=== PATIENT | female | born 1965 | race Caucasian/White ===

== ENCOUNTER 2024-10-31 20:54 | Emergency (ER) | payer MEDICAID, SELFPAY ==
[2024-10-31 21:44] VITALS: BP 108/67; PULSE 96; RESP 20; TEMP 36.6; O2SAT 96
--- NOTE | 2024-10-31 21:53 | PC.NURSE ---
CALLED PT NO ANSWER
--- NOTE | 2024-10-31 21:56 | PD.EDRME ---
Rapid Medical Screening Exam RME Arrival date/time: 10/31/24 20:54 Chief Complaint: Abdominal Pain Time Seen by Provider: 10/31/24 21:22 Vital signs: Vital Signs Temperature 97.8 F 10/31/24 21:44 Pulse Rate 96 10/31/24 21:44 Respiratory Rate 20 10/31/24 21:44 Blood Pressure 108/67 10/31/24 21:44 Pulse Oximetry (%) 96 10/31/24 21:44 Oxygen Delivery Method Room Air 10/31/24 21:44 RME Narrative: reports glucose >500 at home, c/o body aches
[2024-10-31 22:41] LABS: Collection Type, Urine Clean Catch
[2024-10-31 22:57] LABS: Base Excess, Venous -1 (-3-3); Basophils # (Auto) 0.1 Thou/mm3 (0.0-0.2); Basophils % (Auto) 0 % (0-2.5); Eosinophils # (Auto) 0.1 Thou/mm3 (0.0-0.5); Eosinophils % (Auto) 1 % (0-10); Hematocrit 42.7 % (36.0-46.0); Hemoglobin 14.4 g/dL (12.0-16.0); Immature Granulocytes Auto 0.05 Thou/mm3 (0.00-0.00); Lymphocytes # (Auto) 1.6 Thou/mm3 (1.0-4.8); Lymphocytes % (Auto) 14 % (10-50); Mean Corpuscular HGB Conc 33.7 g/dl (31.0-37.0); Mean Corpuscular Hemoglobin 28.3 pg (25.0-35.0); Mean Corpuscular Volume 84 fL (80-100); Monocytes # (Auto) 0.8 Thou/mm3 (0.0-0.8); Monocytes % (Auto) 6 % (0-12); Neutrophils # (Auto) 9.5 Thou/mm3 (1.8-7.7); Neutrophils % (Auto) 78 % (37-80); Nucleated Red Blood Cell # 0.00 Thou/mm3 (0.00-0.00); Nucleated Red Blood Cell % 0 /100 WBC (0); O2 Saturation, Venous 55 % (96-97); PCO2, Venous 43 mmHg (36-56); PO2, Venous 29 mmHg (15-58); Platelet Count 377 Thou/mm3 (140-440); RDW Standard Deviation 40.7 fL (36.4-46.3); Red Blood Count 5.09 Miln/mm3 (4.00-5.20); White Blood Count 12.1 Thou/mm3 (3.6-11.0); pH, Venous 7.36 (7.33-7.66)
[2024-10-31 23:00] LABS: Beta Hydroxybutyrate 0.2 mmol/L (<0.6)
[2024-10-31 23:09] LABS: Bilirubin,Urine Negative (Negative); Blood,Urine Negative (Negative); Clarity,Urine Clear (Clear/Hazy); Color,Urine Lt-Yellow (Lt Yel-Yel); Glucose, Urine 4+ (Negative); Hyaline Casts,Urine 1 /hpf (0-1); Ketones,Urine Negative (Negative); Leukocyte Esterase,Urine Positive (Negative); Nitrite,Urine Negative (Negative); PH,Urine 6.0 (5.0-7.0); Protein,Urine 1+ (Neg - Trace); RBC,Urine 5 /hpf (0-3); Specific Gravity,Urine 1.023 (1.001-1.035); Squamous Epithelial Cell,Urine 5 /hpf (0-5); Urobilinogen,Urine Negative mg/dL (0.0-1.0); WBC,Urine 4 /hpf (0-5)
[2024-10-31] MEDS: IBUPROFEN TAB 400 MG TABLET 800 MG PO (23:15)
[2024-10-31 23:16] LABS: Glucose Estimated Average 329 mg/dL (80-131); Hemoglobin A1C 13.1 % Hgb (4.8-6.0)
[2024-10-31 23:19] LABS: Alanine Aminotransferase 27 U/L (10-49); Albumin, Serum 4.1 gm/dL (3.4-4.8); Albumin/Globulin Ratio 1.1 (1.2-2.2); Alkaline Phosphatase 145 U/L (46-116); Anion Gap 10 (7-16); Aspartate Amino Transferase 18 U/L (0-34); BUN/Creatinine Ratio 17 Ratio (12-20); Bilirubin,Total 0.4 mg/dL (0.3-1.2); Blood Urea Nitrogen 15 mg/dL (9-23); Calcium 9.7 mg/dL (8.3-10.6); Calcium (Corrected) 9.7 mg/dL (8.5-10.1); Carbon Dioxide 22.7 mMol/L (20.0-31.0); Chloride 103 mMol/L (98-107); Creatinine (Component) 0.9 mg/dL (0.6-1.3); Globulin 3.7 gm/dL (2.3-3.5); Glucose 296 mg/dL (74-106); Osmolality,Calculated 283 (275-295); Potassium 3.7 mMol/L (3.4-5.1); Sodium 136 mMol/L (136-145); Total Protein 7.8 gm/dL (5.7-8.2); eGFR > 60 See Note
[2024-11-01 00:01] VITALS: BP 74/41; BP 77/47; PULSE 90; RESP 18; TEMP 36.2; O2SAT 97
[2024-11-01 00:11] VITALS: BMI 24.5
--- NOTE | 2024-11-01 00:24 | PD.EDABDPN ---
ED Abdominal Pain RME/HPI General Chief Complaint: Abdominal Pain Stated complaint: ABD PAIN,BACK PAIN Time seen by provider: 10/31/24 21:22 Arrival date/time: 10/31/24 20:54 RME / HPI RME / HPI narrative: reports glucose >500 at home, c/o body aches DR. CÁREDNAS MAIN ED EVALUATION: 59 y/o female with Hx of Smoking, HTN, and Type II DM presents to ED c/o elevated blood sugar in the 500's and BL flank cramping x 1 day. Denies vomiting. Per niece, patient is not always compliant with her medication, but has made positive adjustments to her diet. Related Data Previous Rx's ?Medication ?Instructions ?Recorded insulin glargine 100 unit/mL (3 12 unit (0.12 mL) subcut BID #3 mL 01/03/19 mL) subcutaneous pen (Basaglar KwikPen U-100 Insulin) metformin 1,000 mg tablet 1,000 mg PO BID #0 tabs 01/03/19 (Glucophage) metformin 1,000 mg tablet 1,000 mg PO BID #180 tabs 05/06/20 Allergies Allergy/AdvReac Type Severity Reaction Status Date / Time No Known Allergies Allergy Verified 10/31/24 20:55 Review of Systems Review of Systems Systems Reviewed: All systems reviewed, normal except as documented Past Medical History Past Medical History NEUROLOGIC: Positive Neurological Disorders CARDIAC: Positive Hypertension MUSCULOSKELETAL: Positive Musculoskeletal Disorders and Arthritis ENDOCRINE: Positive Endocrine Disorders and Diabetes Mellitus Type 2 Social History SMOKING STATUS: Current every day smoker ED Exam Narrative Physical exam: Generally patient is alert elderly appearing female in no obvious distress, heart regular rate and rhythm, lungs clear to auscultation equal bilaterally, abdomen soft bowel sounds present nondistended nontender, skin is warm and dry musculoskeletal exam shows no costovertebral angle tenderness, extremities show no edema, patient is alert and oriented x 4 without focal motor deficit Course Quality Measures none Orders Category Date Time Status Beta Hydroxybutyrate Stat Lab 10/31/24 22:44 Completed CBC Stat Lab 10/31/24 22:44 Completed CMP [Comprehensive Metabolic Panel] Stat Lab 10/31/24 22:44 Completed Hemoglobin A1C [Glycohemoglobin w (eAG)] Stat Lab 10/31/24 22:44 Completed UA [Urinalysis] Stat Lab 10/31/24 22:27 Completed VBG [Venous Blood Gas] Stat Lab 10/31/24 22:44 Completed Ibuprofen Tab [Motrin Tab] Med 10/31/24 23:02 Discontinued 800 mg PO X1 ONE Vital Signs Vital signs: Vital Signs Temperature 97.8 F 10/31/24 21:44 Pulse Rate 96 10/31/24 21:44 Respiratory Rate 20 10/31/24 21:44 Blood Pressure 108/67 10/31/24 21:44 Pulse Oximetry (%) 96 10/31/24 21:44 Oxygen Delivery Method Room Air 10/31/24 21:44 Abdominal Pain MDM MDM Narrative MDM Narrative:: Scribe Attestation: I, Darya Mullins, am scribing for and in the presence of Dr. Cárdenas. Provider Notation: Although this document has been carefully reviewed, there may still be some phonetic and other typographical errors. These errors are purely grammatical due to imperfections in the software program and should not be construed in any way to compromise the substance of the patient's medical care during this visit.\ I interpreted all labs. Blood sugar is 296. Patient is not in diabetic ketoacidosis. Renal function is normal. There is no electrolyte abnormality. Urine is not infected. Patient most likely is experiencing muscular pain due to the fact that she is undergoing osmotic diuresis due to the high blood sugars at home. It was stressed to the patient the importance of taking her insulin as prescribed. She has been missing dosages. Her hemoglobin A1c is 13. Patient was counseled on the need to stay hydrated with noncarbohydrate beverages. Take her insulin as prescribed. Patient data External records reviewed:: [facility] previous records (Reviewed prior ED records from 05/06/20. Patient was seen for Hyperglycemia.) Clinical information provided by:: patient and family (Niece) Social determinants that could affect healthcare access:: none Patient has the following chronic illnesses:: Hypertension, Arthritis, Diabetes Mellitus Type 2 How is presenting disease/condition affected by chronic disease/condition?: exacerbated by Evaluation data The following diagnostics were reviewed and interpreted by me:: lab results Lab and/or radiology exams considered but not ordered:: None Interpretation Summary: See MDM above Medications / Prescriptions Medications or Prescriptions considered but not ordered:: None Medication administrations:: Medication Administration History Discontinued Medications Ibuprofen (Ibuprofen Tab 400 Mg Tablet) 800 mg PO X1 ONE Stop: 10/31/24 23:03 Last Admin: 10/31/24 23:15 Dose: 800 mg Documented By: ALLYSSA See above if any Consultations Consultation(s) initiated? (list below): No Diagnosis Differential diagnosis abdominal pain: abdominal pain, calculus of kidney, constipation, diverticulitis, gastroenteritis, pancreatitis, small bowel obstruction and other (DKA) Most likely diagnosis given after review of the tests above:: none Admission Indicated Admission indicated?: not indicated Explain why admission is indicated or not indicated:: Patient does not meet admission criteria Admission Request Was there a request for admission?: No Disposition Plan Disposition Plan: Discharge Discharge Attestation Discharge Attestation: The patient and all family members were given an opportunity to ask questions and understood the discharge instructions. Discharge instructions specifically effects, indications for sooner follow up or return to the emergency department, and the expected course of current diagnosis. Patient condition: Stable Discharge Plan Plan Patient Disposition: HOME (Self Care) Prescriptions/Referrals Prescriptions/Med Rec: No Action Ang Ngo U-100 Insulin 100 unit/mL (3 mL) insulin pen 12 unit SC BID Qty: 3 0RF Rx Instructions: Please provide with corresponding caps and needles. Thank you. metformin [Glucophage] 1,000 MG tablet 1,000 mg PO BID Qty: 0 0RF metformin 1,000 mg tablet 1,000 mg PO BID Qty: 180 0RF Referrals: David Aguilar MD [Primary Care Provider, Family Practice] - In 1 week Problem List Clinical Impression: Poorly controlled diabetes mellitus, Musculoskeletal pain Patient/Caregiver Discharge Instructions Additional Instructions: You must take your insulin as prescribed. Stay well-hydrated. Follow-up with your doctor as needed. Print Language: Vietnamese Stand Alone Forms: Clotilde Award Info., Patient Portal Info Letter
[2024-11-01 00:40] VITALS: BP 100/61; PULSE 90; RESP 16; TEMP 36.8; O2SAT 95
== END 2024-11-01 00:42 | disposition home or self-care (01) ==
PROVIDERS: Physician Assistant; Emergency Provider Emergency Medicine; PCP Family Medicine
DX: E11.65 Type 2 diabetes mellitus with hyperglycemia (principal); M79.18 Myalgia, other site; I10 Essential (primary) hypertension; M19.90 Unspecified osteoarthritis, unspecified site; F17.210 Nicotine dependence, cigarettes, uncomplicated
CPT/HCPCS: 36415; 80053; 81001; 82010; 82803; 83036; 85025; 99283; A9270

== ENCOUNTER 2024-12-09 19:28 | Emergency (ER) | payer MEDICAID, SELFPAY ==
[2024-12-09 20:24] VITALS: BP 173/80; PULSE 97; RESP 19; TEMP 37.2; O2SAT 98
[2024-12-09 20:25] VITALS: BMI 23.0
--- NOTE | 2024-12-09 20:36 | EKG_ITS ---
[facility] (Formerly [facility])[3] Test Date: 2024-12-09 Pat Name: YOLANDA DANIELS Department: Room: - Gender: Female Store [employer]: : 1965 Requested By: Radha Casper Order Number: [id number] Reading MD: Radha Casper Measurements Intervals [place] Rate: 95 P: 5 CT: 152 QRS: -40 QRSD: 95 T: 73 QT: 337 QTc: 425 Interpretive Statements SINUS RHYTHM LEFT AXIS DEVIATION [QRS AXIS < -30] LOW QRS VOLTAGE IN PRECORDIAL LEADS [QRS DEFLECTION < 1.0 mV IN CHEST LEADS] PATTERN CONSISTENT WITH PULMONARY DISEASE INCOMPLETE RIGHT BUNDLE BRANCH BLOCK [90+ ms QRS DURATION, TERMINAL R IN V1/V2, 40+ ms S IN I/aVL/V4/V5/V6] No previous ECG available for comparison /store/[email or web address]/[id number].pdf
--- NOTE | 2024-12-09 20:36 | XR_ITS ---
Examination: CT brain head without contrast. 2-D sagittal coronal reconstructions Date and time of exam: December 09, 2024, 2056 hours INDICATIONS: Head pain bilateral leg weakness this week CTDI: vol (mGy): 47.5 DLP: (mGycm): 955 Technique: Multiple CT axial sections of the brain have been obtained, 5 mm slice thickness. Contrast has not been administered. 2-D sagittal, coronal reconstructions have been obtained Low dose protocols were performed. One or more of the following dose reduction techniques were used; automated exposure control, adjustment of the mA and/or KV according to patient size, use of iterative reconstruction technique. Findings: No significant ventricular enlargement. Intra-axial or extra-axial hemorrhage density is not seen. No mass effect or midline shift Basal cisterns are not remarkable. Fourth ventricle is midline. Cranial vault intact. Impression: Negative for acute hemorrhage, mass effect or midline shift Advise clinical correlation and follow-up accordingly
--- NOTE | 2024-12-09 20:46 | PD.EDRME ---
Rapid Medical Screening Exam RME Arrival date/time: 12/09/24 19:28 This is a case of 59-year-old female with history of diabetes said that the patient is out of medication and was brought here due to general weakness and left lower leg weakness and numbness for 1 week worsening of the symptoms this patient decided to sought consult here in the emergency room Chief Complaint: General Adult/Misc Complain Time Seen by Provider: 12/09/24 20:29 Vital signs: Vital Signs Temperature 99.0 F 12/09/24 20:24 Pulse Rate 97 12/09/24 20:24 Respiratory Rate 19 12/09/24 20:24 Blood Pressure 173/80 H 12/09/24 20:24 Pulse Oximetry (%) 98 12/09/24 20:24 Oxygen Delivery Method Room Air 12/09/24 20:24 Exam: Patient is awake and decreased sensory on the left lower leg awake alert oriented x 4 not in distress Clinical Impression: Generalized weakness
[2024-12-09 21:18] LABS: Base Excess, Venous 4 (-3-3); O2 Saturation, Venous 62 % (96-97); PCO2, Venous 48 mmHg (36-56); PO2, Venous 32 mmHg (15-58); pH, Venous 7.40 (7.33-7.66)
[2024-12-09] MEDS: INSULIN HUM REGULAR 1 UNIT/0.01 ML (PER UNIT) 6 UNIT IV (21:20)
[2024-12-09] MEDS: SODIUM CHLORIDE 0.9% 1000 ML 1,000 ML 999 ML IV (21:21)
[2024-12-09 21:22] LABS: Basophils # (Auto) 0.0 Thou/mm3 (0.0-0.2); Basophils % (Auto) 0 % (0-2.5); Eosinophils # (Auto) 0.4 Thou/mm3 (0.0-0.5); Eosinophils % (Auto) 4 % (0-10); Hematocrit 40.6 % (36.0-46.0); Hemoglobin 13.4 g/dL (12.0-16.0); Immature Granulocytes Auto 0.04 Thou/mm3 (0.00-0.00); Lymphocytes # (Auto) 1.6 Thou/mm3 (1.0-4.8); Lymphocytes % (Auto) 15 % (10-50); Mean Corpuscular HGB Conc 33.0 g/dl (31.0-37.0); Mean Corpuscular Hemoglobin 27.6 pg (25.0-35.0); Mean Corpuscular Volume 84 fL (80-100); Monocytes # (Auto) 0.7 Thou/mm3 (0.0-0.8); Monocytes % (Auto) 6 % (0-12); Neutrophils # (Auto) 8.1 Thou/mm3 (1.8-7.7); Neutrophils % (Auto) 74 % (37-80); Nucleated Red Blood Cell # 0.00 Thou/mm3 (0.00-0.00); Nucleated Red Blood Cell % 0 /100 WBC (0); Platelet Count 395 Thou/mm3 (140-440); RDW Standard Deviation 43.5 fL (36.4-46.3); Red Blood Count 4.85 Miln/mm3 (4.00-5.20); White Blood Count 10.8 Thou/mm3 (3.6-11.0)
[2024-12-09 21:35] LABS: Beta Hydroxybutyrate 0.1 mmol/L (<0.6)
--- NOTE | 2024-12-09 21:42 | PD.EDWEAK ---
ED Weakness RME/HPI General Chief complaint: Altered Mental Status Stated complaint: UNABLE TO WALK X 1WEEK Time Seen by Provider: 12/09/24 20:29 Arrival date/time: 12/09/24 19:28 RME / HPI RME / HPI Narrative: 12/09/24 19:28 This is a case of 59-year-old female with history of diabetes said that the patient is out of medication and was brought here due to general weakness and left lower leg weakness and numbness for 1 week worsening of the symptoms this patient decided to sought consult here in the emergency room DR. CÁRDENAS MAIN ED EVALUATION: 59 y/o female with Hx of Type II DM, Smoking, HTN, and Hypercholesterolemia presents to ED c/o generalized weakness and difficulty with ambulation x 1 week. Patient is known non-compliant with her insulin. Exam: Patient is awake and decreased sensory on the left lower leg awake alert oriented x 4 not in distress Impression: Generalized weakness Related Data Previous Rx's ?Medication ?Instructions ?Recorded insulin glargine 100 unit/mL (3 12 unit (0.12 mL) subcut BID #3 mL 01/03/19 mL) subcutaneous pen (Basaglar KwikPen U-100 Insulin) metformin 1,000 mg tablet 1,000 mg PO BID #0 tabs 01/03/19 (Glucophage) metformin 1,000 mg tablet 1,000 mg PO BID #180 tabs 05/06/20 Allergies Allergy/AdvReac Type Severity Reaction Status Date / Time No Known Allergies Allergy Verified 10/31/24 20:55 Review of Systems Review of Systems Systems Reviewed: All systems reviewed, normal except as documented Past Medical History Past Medical History NEUROLOGIC: Positive Neurological Disorders CARDIAC: Positive Hypercholesterolemia and Hypertension MUSCULOSKELETAL: Positive Musculoskeletal Disorders and Arthritis ENDOCRINE: Positive Endocrine Disorders and Diabetes Mellitus Type 2 Social History SMOKING STATUS: Current every day smoker ED Exam Narrative Physical exam: Generally patient is alert chronically ill-appearing and in no obvious distress, heart regular rate and rhythm, lungs clear to auscultation equal bilaterally, abdomen soft bowel sounds present also nontender, skin is warm pale and dry, neurologic exam patient is symmetrically weak throughout but absolutely without focal motor or sensory deficits. No problems with speech. No facial asymmetry. Course Quality Measures none Orders Category Date Time Status EKG (ED ONLY) *Do not use* NOW Care 12/09/24 20:[address] head/brain wo con Stat Exams 12/09/24 20:36 Completed EKG (ED Only) Stat Exams 12/09/24 20:36 Draft Beta Hydroxybutyrate Stat Lab 12/09/24 21:04 Completed CBC Stat Lab 12/09/24 21:04 Completed CMP [Comprehensive Metabolic Panel] Stat Lab 12/09/24 21:04 Completed Troponin I Stat Lab 12/09/24 21:04 Completed Urinalysis Stat Lab 12/09/24 22:30 Ordered Venous Blood Gas Stat Lab 12/09/24 21:04 Completed Insulin Regular Med 12/09/24 21:02 Discontinued 6 unit IV X1 ONE Potassium Chloride [K-Dur] Med 12/09/24 22:18 Discontinued 60 meq PO X1 ONE Sodium Chloride 0.9% 1000 ml [Ns] 1,000 ml Med 12/09/24 21:03 Discontinued IV 999 mls/hr Vital Signs Vital signs: Vital Signs Temperature 99.0 F 12/09/24 20:24 Pulse Rate 97 12/09/24 20:24 Respiratory Rate 19 12/09/24 20:24 Blood Pressure 173/80 H 12/09/24 20:24 Pulse Oximetry (%) 98 12/09/24 20:24 Oxygen Delivery Method Room Air 12/09/24 20:24 Weakness MDM Narrative MDM Narrative:: Scribe Attestation: Darya Ruiz, am scribing for and in the presence of Dr. Cárdenas. Provider Notation: Although this document has been carefully reviewed, there may still be some phonetic and other typographical errors. These errors are purely grammatical due to imperfections in the software program and should not be construed in any way to compromise the substance of the patient's medical care during this visit. Patient was hydrated with a liter normal saline. Patient's blood sugar was 290 by chemistry. Prior to my evaluation 6 units of regular insulin IV had been ordered. 1 hour post insulin administration check showed a blood sugar of 286. Head CT was negative. Patient is not in diabetic ketoacidosis. Patient's potassium came back at 3.1. Patient was given 60 mill equivalents potassium chloride p.o. Patient needs to take her diabetic medication as prescribed. She must also take her high blood pressure medication as prescribed. She was warned that poorly controlled diabetes and hypertension will lead to stroke. She is to take 1 aspirin per day. Follow-up with her doctor. Return to ER as needed or if condition worsens. I interpreted all labs. Patient data External records reviewed:: [facility] previous records (Reviewed prior ED records from 11/01/24. Patient was seen for Musculoskeletal pain.) Clinical information provided by:: patient and other (specify) (Boyfriend) Social determinants that could affect healthcare access:: none Patient has the following chronic illnesses:: Hypercholesterolemia, Hypertension, Arthritis, Diabetes Mellitus Type 2 How is presenting disease/condition affected by chronic disease/condition?: exacerbated by Evaluation data The following diagnostics were reviewed and interpreted by me:: lab results, radiology exam(s) and EKG tracing(s) Lab and/or radiology exams considered but not ordered:: None Interpretation Summary: RADIOLOGY Head/Brain CT: Findings: No significant ventricular enlargement. Intra-axial or extra-axial hemorrhage density is not seen. No mass effect or midline shift Basal cisterns are not remarkable. Fourth ventricle is midline. Cranial vault intact. Impression: Negative for acute hemorrhage, mass effect or midline shift Advise clinical correlation and follow-up accordingly Medications / Prescriptions Medications or Prescriptions considered but not ordered:: None Medication administrations:: Medication Administration History Discontinued Medications Sodium Chloride (Ns) 1,000 mls @ 999 mls/hr IV .Q1H1M ONE Stop: 12/09/24 22:03 Last Infusion: 12/09/24 22:07 Dose: Infused Documented By: [email or web address] Admin: 12/09/24 21:21 Dose: 999 mls/hr Documented By: RISA Insulin Human Regular (Insulin Hum Regular 1 Unit/0.01 Ml (Per Unit)) 6 unit IV X1 ONE Stop: 12/09/24 21:03 Last Admin: 12/09/24 21:20 Dose: 6 unit Documented By: BD Co-signed By: JORDAN Potassium Chloride (Potassium Chloride 20 Meq Tabcr) 60 meq PO X1 ONE Stop: 12/09/24 22:19 Last Admin: 12/09/24 22:32 Dose: 60 meq Documented By: BRY See above if any Consultations Consultation(s) initiated? (list below): No Diagnosis Weakness Differential Diagnosis: acute myocardial infarction, hypoglycemia, hypothyroidism, rhabdomyolysis, sepsis, dehydration and other (DKA, CVA, TIA) Most likely diagnosis given after review of the tests above:: None Admission Indicated Admission indicated?: not indicated Admission Request Was there a request for admission?: No Disposition Plan Disposition Plan: Discharge Discharge Attestation Discharge Attestation: The patient and all family members were given an opportunity to ask questions and understood the discharge instructions. Discharge instructions specifically effects, indications for sooner follow up or return to the emergency department, and the expected course of current diagnosis. Patient condition: Stable Discharge Plan Plan Patient Disposition: HOME (Self Care) Prescriptions/Referrals Prescriptions/Med Rec: No Action Ang Ngo U-100 Insulin 100 unit/mL (3 mL) insulin pen 12 unit SC BID Qty: 3 0RF Rx Instructions: Please provide with corresponding caps and needles. Thank you. metformin [Glucophage] 1,000 MG tablet 1,000 mg PO BID Qty: 0 0RF metformin 1,000 mg tablet 1,000 mg PO BID Qty: 180 0RF Referrals: No Primary/Family,Physician [Primary Care Provider] - In 1 week Problem List Clinical Impression: Medical non-compliance, Poorly controlled diabetes mellitus, Weakness, Hypokalemia Patient/Caregiver Discharge Instructions Education Materials: ED Diabetes- Overview, ED Hypokalemia, ED Weakness (Uncertain Cause) Additional Instructions: You must take your medications as prescribed. Take 1 baby aspirin per day. Follow-up with your doctor. Return to ER as needed or if condition worsens. Print Language: Russian Stand Alone Forms: Clotilde Award Info., Patient Portal Info Letter
[2024-12-09 21:53] VITALS: BP 174/83; PULSE 79; RESP 19; TEMP 37.1; O2SAT 98
[2024-12-09 22:05] LABS: Alanine Aminotransferase 31 U/L (10-49); Albumin, Serum 4.2 gm/dL (3.4-4.8); Albumin/Globulin Ratio 1.1 (1.2-2.2); Alkaline Phosphatase 157 U/L (46-116); Anion Gap 10 (7-16); Aspartate Amino Transferase 20 U/L (0-34); BUN/Creatinine Ratio 14 Ratio (12-20); Bilirubin,Total 0.4 mg/dL (0.3-1.2); Blood Urea Nitrogen 10 mg/dL (9-23); Calcium 9.9 mg/dL (8.3-10.6); Calcium (Corrected) 9.9 mg/dL (8.5-10.1); Carbon Dioxide 25.4 mMol/L (20.0-31.0); Chloride 102 mMol/L (98-107); Creatinine (Component) 0.7 mg/dL (0.6-1.3); Estimated Creatinine Clearance 66.8 mL/min (>60); Globulin 3.9 gm/dL (2.3-3.5); Glucose 290 mg/dL (74-106); Osmolality,Calculated 283 (275-295); Potassium 3.1 mMol/L (3.4-5.1); Sodium 137 mMol/L (136-145); Total Protein 8.1 gm/dL (5.7-8.2); Troponin I < 0.002 ng/mL (0.0-0.045); eGFR > 60 See Note
[2024-12-09 22:44] LABS: Collection Type, Urine Voided
[2024-12-09 22:58] LABS: Bacteria,Urine Rare; Bilirubin,Urine Negative (Negative); Blood,Urine Trace (Negative); Budding Yeast,Urine Present; Clarity,Urine Turbid (Clear/Hazy); Color,Urine Lt-Yellow (Lt Yel-Yel); Glucose, Urine 4+ (Negative); Ketones,Urine Negative (Negative); Leukocyte Esterase,Urine Positive (Negative); Nitrite,Urine Negative (Negative); PH,Urine 6.5 (5.0-7.0); Protein,Urine 1+ (Neg - Trace); RBC,Urine 15 /hpf (0-3); Specific Gravity,Urine 1.035 (1.001-1.035); Squamous Epithelial Cell,Urine 4 /hpf (0-5); Urobilinogen,Urine Negative mg/dL (0.0-1.0); WBC,Urine 155 /hpf (0-5)
[2024-12-09 23:08] VITALS: BP 142/86; PULSE 80; RESP 20; TEMP 36.8; O2SAT 98
== END 2024-12-09 23:12 | disposition home or self-care (01) ==
PROVIDERS: Nurse Practitioner Family; Emergency Provider Emergency Medicine
DX: E11.65 Type 2 diabetes mellitus with hyperglycemia (principal); E78.00 Pure hypercholesterolemia, unspecified; E11.69 Type 2 diabetes mellitus with other specified complication; E87.6 Hypokalemia; I10 Essential (primary) hypertension; Z79.4 Long term (current) use of insulin; Z79.84 Long term (current) use of oral hypoglycemic drugs; Z87.891 Personal history of nicotine dependence; Z91.148 Patient's other noncompliance with medication regimen for other reason
CPT/HCPCS: 36415; 70450; 80053; 81001; 82010; 82803; 84484; 85025; 93005; 96360; 99284; J1815; J7030; A9270